=== PATIENT | male | born 1950 | race Caucasian/White ===

== ENCOUNTER → 2024-08-19 | Outpatient (CLI) | payer MEDICARE, SELFPAY ==
--- NOTE | 2024-08-19 | XR_ITS ---
Examination: PA lateral chest 2 views TECHNIQUE: Upright PA lateral chest 2 views Exam date and time: August 19, 2024 1237 hours INDICATIONS: Congestion shortness of breath beginning 2 days ago. FINDINGS: Minor subsegmental atelectasis at both lung bases No lobar pneumonia Normal heart size IMPRESSION: No lobar pneumonia identified
[2024-08-19 13:24] LABS: Basophils # (Auto) 0.1 Thou/mm3 (0.0-0.2); Basophils % (Auto) 1 % (0-2.5); Eosinophils # (Auto) 0.6 Thou/mm3 (0.0-0.5); Eosinophils % (Auto) 7 % (0-10); Hemoglobin 15.8 g/dL (13.5-16.0); Immature Granulocytes % (Auto) 0 % (0-0); Immature Granulocytes Auto 0.02 Thou/mm3 (0.00-0.00); Lymphocytes # (Auto) 3.9 Thou/mm3 (1.0-4.8); Lymphocytes % (Auto) 43 % (10-50); Mean Corpuscular HGB Conc 34.3 g/dl (31.0-37.0); Mean Corpuscular Volume 90 fL (80-100); Monocytes # (Auto) 0.8 Thou/mm3 (0.0-0.8); Monocytes % (Auto) 9 % (0-12); Neutrophils # (Auto) 3.8 Thou/mm3 (1.8-7.7); Neutrophils % (Auto) 41 % (37-80); Nucleated Red Blood Cell % 0 /100 WBC (0); Platelet Count 244 Thou/mm3 (140-440); Red Blood Count 5.09 Miln/mm3 (4.50-5.90); White Blood Count 9.2 Thou/mm3 (3.8-10.6)
[2024-08-19 13:39] LABS: Glucose Estimated Average 166 mg/dL (80-131); Hemoglobin A1C 7.4 % Hgb (4.8-6.0)
[2024-08-19 13:45] LABS: Alanine Aminotransferase 18 U/L (10-49); Albumin, Serum 4.5 gm/dL (3.4-4.8); Albumin/Globulin Ratio 2.1 (1.2-2.2); Alkaline Phosphatase 91 U/L (46-116); Anion Gap 9 (7-16); Aspartate Amino Transferase 12 U/L (0-34); BUN/Creatinine Ratio 18 Ratio (12-20); Bilirubin,Total 0.6 mg/dL (0.3-1.2); Blood Urea Nitrogen 16 mg/dL (9-23); Calcium 9.4 mg/dL (8.3-10.6); Calcium (Corrected) 9.4 mg/dL (8.5-10.1); Carbon Dioxide 26.9 mMol/L (20.0-31.0); Cardiac Risk Estimate 4.5 RATIO (4.0-6.7); Chloride 103 mMol/L (98-107); Cholesterol 195 mg/dL (132-200); Creatinine (Component) 0.9 mg/dL (0.6-1.3); Free T4 (Free Thyroxine) 1.07 ng/dL (0.89-1.76); Globulin 2.1 gm/dL (2.3-3.5); Glucose 128 mg/dL (74-106); HDL Cholesterol 43 mg/dL (40-60); Osmolality,Calculated 280 (275-295); Potassium 4.1 mMol/L (3.4-5.1); Sodium 139 mMol/L (136-145); Total Protein 6.6 gm/dL (5.7-8.2); Triglycerides 403 mg/dL (30-150); eGFR > 60 See Note
[2024-08-19 14:23] LABS: Hepatitis C Antibody Non Reactive (Non React)
== END | disposition home or self-care (01) ==
LOC: CDIM 12:44 → COPL 12:52
PROVIDERS: PCP Nurse Practitioner Family; Referring Provider Nurse Practitioner Family; Visit Provider Radiology Diagnostic Radiology
DX: J44.9 Chronic obstructive pulmonary disease, unspecified (principal); E11.9 Type 2 diabetes mellitus without complications; E78.5 Hyperlipidemia, unspecified; Z13.29 Encounter for screening for other suspected endocrine disorder; Z11.59 Encounter for screening for other viral diseases
CPT/HCPCS: 36415; 71046; 80053; 80061; 83036; 84439; 84443; 85025; 86803

== ENCOUNTER → 2024-08-22 | Outpatient (CLI) | payer MEDICARE, SELFPAY ==
[2024-08-22 13:32] LABS: B-Type Natriuretic Peptide 28 pg/mL (0-100)
[2024-08-22 13:44] LABS: Creatinine MALB Rnd Ur 72 mg/dL (30-125); Microalbumin, Random Urine < 3 mg/L (0-300)
[2024-08-22 13:44] LABS: C-Reactive Protein < 0.4 mg/dL (0.0-0.9); Cardiac Risk Estimate 4.8 RATIO (4.0-6.7); Cholesterol 222 mg/dL (132-200); HDL Cholesterol 46 mg/dL (40-60); LDL Cholesterol,Calculated 105 mg/dL (0-130); Triglycerides 353 mg/dL (30-150)
[2024-08-22 13:45] LABS: Sed Rate (ESR) 10 mm/hr (0-20)
[2024-08-22 13:49] LABS: Folate > 24.00 ng/mL (>5.38); Vitamin B12 1116 pg/mL (211-911); Vitamin D 25 Hydroxy Total 42.4 ng/mL (7.3-40.2)
[2024-08-26 07:04] LABS: Fecal Globin Result NOT DETECTED (NOT DETECTED)
[2024-09-12 09:08] LABS: Direct LDL* 114 mg/dL (<100)
== END | disposition home or self-care (01) ==
PROVIDERS: PCP Family Medicine; Referring Provider Nurse Practitioner Family; Visit Provider Nurse Practitioner Family
DX: E11.65 Type 2 diabetes mellitus with hyperglycemia (principal); E78.5 Hyperlipidemia, unspecified; R53.83 Other fatigue; R06.00 Dyspnea, unspecified; M10.9 Gout, unspecified; Z12.11 Encounter for screening for malignant neoplasm of colon
CPT/HCPCS: 36415; 80061; 82043; 82274; 82306; 82570; 82607; 82746; 83721; 83880; 84550; 85652; 86140; G0328

== ENCOUNTER → 2025-02-27 | Outpatient (CLI) | payer MEDICARE, SELFPAY ==
[2025-02-27 12:48] LABS: Basophils % (Auto) 1 % (0-2.5); Eosinophils # (Auto) 0.4 Thou/mm3 (0.0-0.5); Eosinophils % (Auto) 4 % (0-10); Hematocrit 46.6 % (41.0-53.0); Hemoglobin 15.5 g/dL (13.5-16.0); Immature Granulocytes % (Auto) 0 % (0-0); Immature Granulocytes Auto 0.02 Thou/mm3 (0.00-0.00); Lymphocytes # (Auto) 3.4 Thou/mm3 (1.0-4.8); Lymphocytes % (Auto) 42 % (10-50); Mean Corpuscular HGB Conc 33.3 g/dl (31.0-37.0); Mean Corpuscular Hemoglobin 30.1 pg (25.0-35.0); Mean Corpuscular Volume 91 fL (80-100); Monocytes # (Auto) 0.8 Thou/mm3 (0.0-0.8); Monocytes % (Auto) 9 % (0-12); Neutrophils # (Auto) 3.5 Thou/mm3 (1.8-7.7); Neutrophils % (Auto) 43 % (37-80); Nucleated Red Blood Cell % 0 /100 WBC (0); Platelet Count 270 Thou/mm3 (140-440); RDW Standard Deviation 44.3 fL (35.1-43.9); Red Blood Count 5.15 Miln/mm3 (4.50-5.90); White Blood Count 8.2 Thou/mm3 (3.8-10.6)
[2025-02-27 12:55] LABS: Collection Type, Urine Clean Catch
[2025-02-27 13:04] LABS: Glucose Estimated Average 163 mg/dL (80-131); Hemoglobin A1C 7.3 % Hgb (4.8-6.0)
[2025-02-27 13:21] LABS: Alanine Aminotransferase 15 U/L (10-49); Albumin, Serum 4.2 gm/dL (3.4-4.8); Alkaline Phosphatase 71 U/L (46-116); Anion Gap 6 (7-16); Aspartate Amino Transferase 14 U/L (0-34); BUN/Creatinine Ratio 13 Ratio (12-20); Bilirubin,Total 0.5 mg/dL (0.3-1.2); Blood Urea Nitrogen 13 mg/dL (9-23); C-Reactive Protein < 0.5 mg/dL (0.0-0.9); Carbon Dioxide 27.3 mMol/L (20.0-31.0); Cardiac Risk Estimate 3.8 RATIO (4.0-6.7); Chloride 107 mMol/L (98-107); Cholesterol 153 mg/dL (132-200); Globulin 2.1 gm/dL (2.3-3.5); Glucose 123 mg/dL (74-106); HDL Cholesterol 40 mg/dL (40-60); LDL Cholesterol,Calculated 67 mg/dL (0-130); Magnesium 1.9 mg/dL (1.6-2.6); Osmolality,Calculated 280 (275-295); Potassium 4.3 mMol/L (3.4-5.1); Sodium 140 mMol/L (136-145); Total Protein 6.3 gm/dL (5.7-8.2); Triglycerides 230 mg/dL (30-150); Uric Acid 6.9 mg/dL (3.7-9.2); eGFR > 60 See Note
[2025-02-27 13:37] LABS: Bilirubin,Urine Negative (Negative); Blood,Urine Negative (Negative); Clarity,Urine Clear (Clear/Hazy); Color,Urine Yellow (Lt Yel-Yel); Culture Indicated,Urine Not Indicated; Glucose, Urine Negative (Negative); Ketones,Urine Negative (Negative); Leukocyte Esterase,Urine Negative (Negative); Nitrite,Urine Negative (Negative); Protein,Urine Negative (Neg - Trace); RBC,Urine 1 /hpf (0-3); Specific Gravity,Urine 1.014 (1.001-1.035); Squamous Epithelial Cell,Urine < 1 /hpf (0-5); Urobilinogen,Urine Negative mg/dL (0.0-1.0); WBC,Urine 2 /hpf (0-5)
== END | disposition home or self-care (01) ==
PROVIDERS: PCP Nurse Practitioner Family; Referring Provider Nurse Practitioner Family; Visit Provider Nurse Practitioner Family
DX: E78.5 Hyperlipidemia, unspecified (principal); E11.65 Type 2 diabetes mellitus with hyperglycemia; I10 Essential (primary) hypertension; M10.9 Gout, unspecified
CPT/HCPCS: 36415; 80053; 80061; 81001; 83036; 83735; 84550; 85025; 86140

== ENCOUNTER → 2025-04-17 | Outpatient (CLI) | payer MEDICARE, SELFPAY ==
--- NOTE | 2025-04-17 10:41 | XR_ITS ---
Examination: Bilateral hips, AP pelvis, 5 views Technique: AP, lateral views both hips, AP pelvis, 5 views Exam date and time: April 17, 2025 1056 hours INDICATIONS: Bilateral hip pain beginning 4 weeks ago FINDINGS: Moderate narrowing hip joints No hip or pelvic fracture bilaterally IMPRESSION: Moderate bilateral hip osteoarthritis
== END | disposition home or self-care (01) ==
PROVIDERS: PCP Nurse Practitioner Family; Referring Provider Nurse Practitioner Family; Visit Provider Nurse Practitioner Family
DX: M16.0 Bilateral primary osteoarthritis of hip (principal)
CPT/HCPCS: 73521

== ENCOUNTER → 2025-05-20 | Outpatient (CLI) | payer MEDICARE, SELFPAY ==
[2025-05-20 14:07] LABS: Collection Type, Urine Clean Catch
[2025-05-20 17:27] LABS: Bacteria,Urine Rare; Bilirubin,Urine Negative (Negative); Blood,Urine Negative (Negative); Color,Urine Yellow (Lt Yel-Yel); Glucose, Urine Negative (Negative); Ketones,Urine Negative (Negative); Leukocyte Esterase,Urine Positive (Negative); Nitrite,Urine Negative (Negative); PH,Urine 6.5 (5.0-7.0); Protein,Urine Trace (Neg - Trace); RBC,Urine 14 /hpf (0-3); Specific Gravity,Urine 1.014 (1.001-1.035); Squamous Epithelial Cell,Urine 2 /hpf (0-5); Urobilinogen,Urine Negative mg/dL (0.0-1.0); WBC,Urine 136 /hpf (0-5)
[2025-05-20 17:45] LABS: Clarity,Urine Cloudy (Clear/Hazy); Culture Indicated,Urine Yes
== END | disposition home or self-care (01) ==
PROVIDERS: Referring Provider Nurse Practitioner Family; Visit Provider Nurse Practitioner Family
DX: N39.0 Urinary tract infection, site not specified (principal)
CPT/HCPCS: 81001; 87077; 87086; 87186

== ENCOUNTER → 2025-05-22 | Outpatient (CLI) | payer MEDICARE, SELFPAY ==
[2025-05-23 10:04] LABS: Campylobacter PCR Negative (Negative); Salmonella Species PCR Negative (Negative); Shiga Toxin PCR Negative (Negative); Shigella Species PCR Negative (Negative)
== END | disposition home or self-care (01) ==
LOC: SLDO 13:02
PROVIDERS: PCP Nurse Practitioner Family; Referring Provider Nurse Practitioner Family; Visit Provider Nurse Practitioner Family
DX: A09 Infectious gastroenteritis and colitis, unspecified (principal)
CPT/HCPCS: 87015; 87045; 87046; 87505; 87899

== ENCOUNTER → 2025-05-28 | Outpatient (CLI) | payer MEDICARE, SELFPAY ==
--- NOTE | 2025-05-28 15:30 | XR_ITS ---
Examination: CT chest, without intravenous contrast. Sagittal and coronal 2-D reconstructions. Exam date and time: May 28, 2025 1436 hours, comparison 05/29/2024 INDICATIONS: Smoking history 20 years, 12 mm left tracheobronchial lymph node on CT chest 05/29/2024 CTDI:vol (mGy) 15.2 DLP: (mGycm) 578 Technique: Multiple 3.0 mm axial sections of the chest to been obtained. Bone and lung density settings are obtained. Sagittal and coronal 2-D reconstructions have been obtained. Low dose protocols were performed. One or more of the following dose reduction techniques were used; automated exposure control, adjustment of the mA and/or KV according to patient size, use of iterative reconstruction technique. Findings: Stable 12 mm left tracheobronchial lymph node No thoracic aortic aneurysm dilatation. Pulmonary artery segments do not appear enlarged COPD with focal areas of airspace destruction No pneumonia or pulmonary edema No visualized liver or splenic lesion No gallstones IMPRESSION: Stable 12 mm left tracheobronchial lymph node No interval pulmonary nodules COPD
== END | disposition home or self-care (01) ==
PROVIDERS: Referring Provider Internal Medicine; Visit Provider Internal Medicine
DX: J44.9 Chronic obstructive pulmonary disease, unspecified (principal)
CPT/HCPCS: 71250

== ENCOUNTER → 2025-06-11 | Outpatient (CLI) | payer MEDICARE, SELFPAY ==
[2025-06-11 09:50] LABS: Glucose Estimated Average 146 mg/dL (80-131); Hemoglobin A1C 6.7 % Hgb (4.8-6.0)
[2025-06-11 09:52] LABS: Cardiac Risk Estimate 3.0 RATIO (4.0-6.7); Cholesterol 132 mg/dL (132-200); HDL Cholesterol 44 mg/dL (40-60); LDL Cholesterol,Calculated 56 mg/dL (0-130); Magnesium 1.9 mg/dL (1.6-2.6); Triglycerides 162 mg/dL (30-150); Uric Acid 5.8 mg/dL (3.7-9.2)
== END | disposition home or self-care (01) ==
LOC: COPL 08:47
PROVIDERS: PCP Family Medicine; Referring Provider Nurse Practitioner Family; Visit Provider Nurse Practitioner Family
DX: M10.9 Gout, unspecified (principal); E78.5 Hyperlipidemia, unspecified; E11.65 Type 2 diabetes mellitus with hyperglycemia; E11.3293 Type 2 diabetes mellitus with mild nonproliferative diabetic retinopathy without macular edema, bilateral; E83.42 Hypomagnesemia
CPT/HCPCS: 36415; 80061; 83036; 83735; 84550

== ENCOUNTER 2025-07-24 09:23 | Outpatient (AMB) | payer MEDICARE, SELFPAY ==
--- NOTE | 2025-07-24 09:28 | ORTHONT_ITS ---
Vital signs 07/24/25 09:34 Height 1.78 m Height Method Measured Weight 104.326 kg Weight Measurement Method Standing Scale BMI 33.0 BP 126/79 Blood Pressure Source Automatic Cuff Blood Pressure Location Left Upper Arm Position Sitting Respiration 18 Pulse 74 Pulse Source Monitor Temp 98.0 F Temp Source Temporal Artery Scan Pulse Oximetry (%) 92 L Oxygen Delivery Method Room Air Med/Allergies Allergies & Medications Allergies No Known Allergies Allergy (Verified 07/24/25 09:36) Medication Reconciliation albuterol sulfate 90 mcg/actuation aerosol inhaler (Ventolin HFA) 1 inh inhalat ion QID 07/24/25 [History Confirmed 07/24/25] budesonide 160 mcg-glycopyr 9 mcg-formot 4.8 mcg/actuation HFA inhaler (Breztri Aerosphere) 2 inh inhalation BID 07/24/25 [History Confirmed 07/24/25] carvedilol 3.125 mg tablet 3.125 mg PO BID 07/24/25 [History Confirmed 07/24/25] faricimab-svoa 6 mg/0.05 mL intravitreal solution (Vabysmo) 6 mg intravitreal Q16W 07/24/25 [History Confirmed 07/24/25] fenofibrate 54 mg tablet 54 mg PO QDAY 07/24/25 [History Confirmed 07/24/25] metformin 1,000 mg tablet,extended release 24hr (osmotic) (Fortamet) 1,000 mg PO QDAY 07/24/25 [History Confirmed 07/24/25] potassium chloride 8 mEq tablet,extended release (Klor-Con) 8 meq PO QDAY 07/24/25 [History Confirmed 07/24/25] rivaroxaban 20 mg tablet (Xarelto) 20 mg PO QDAY 07/24/25 [History Confirmed 07/24/25] rosuvastatin 10 mg tablet 10 mg PO QDAY 07/24/25 [History Confirmed 07/24/25] tadalafil 20 mg tablet (Cialis) 20 mg PO QDAY PRN 07/24/25 [History Confirmed 07/24/25] tiotropium bromide 2.5 mcg/actuation mist for inhalation (Spiriva Respimat) 2 inh inhalation QAM 07/24/25 [History Confirmed 07/24/25] Exam Exam Patient is in no acute distress and is cooperative with the examination today. Breathing is nonlabored. In no respiratory distress. Patient has no paraspinal tenderness. Spinal deformity cannot be appreciated. The gait of the patient is nonantalgic Bilateral extremities were evaluated and demonstrates sensation intact to light touch. Palpable pedal pulses are present. No significant edema is present. Bilateral knees were examined and the patient has full strength and range of motion.. The right hip was examined. Patient was able to flex to 90 degrees, adduct to 30 degrees, abduct to 40 degrees, internally rotate to 20 degrees, and externally rotate to 20 degrees. Patient has a negative logroll. Stinchfield is negative. The patient is tender to touch over the greater trochanter The left hip was examined. Patient was able to flex to 90 degrees, adduct to 30 degrees, abduct to 40 degrees, internally rotate to 20 degrees, and externally rotate to 20 degrees. Patient has a negative logroll. The stinchfield is nega tive. The patient is tender to touch over the greater trochanter X-rays demonstrate preserved hip joint spaces Assessment and Plan Problem List (1) Trochanteric bursitis of both hips: Status: Acute Plan: Patient is a 74-year-old male with bilateral hip trochanteric bursitis. ASSESSMENT AND PLAN 1. Bilateral hip pain: The bilateral hip pain is likely due to trochanteric bursitis, exacerbated by a tight IT band. Mild arthritis was also noted. The pain is on the sides of the hips and is somewhat bothersome but not severe. The patient has not tried anti- inflammatory medications due to his current use of Xarelto, which contraindicate s such medications. He has previously completed 10 physical therapy sessions, which did not focus on the necessary stretching exercises. A hip conditioning program focused on stretches was provided. The patient is advised to perform stretching exercises for the IT band. If there is no improvement with the stretching exercises, an injection will be considered. The patient should avoid anti-inflammatory medications due to the risk of bleeding associated with Xarelto. The goal is to alleviate pain and improve mobility without the need for surgery. Advanced Care Planning Discussion Advance care planning discussed with:: patient Office Procedures GNS Level of Care Nursing/Assessment Patient Status: Initial/New Patient Nursing Assessment/Reassesment: Medication Reconciliation, Update PMH in EMR and Vital Signs Coordination of Care: Complex Care and Chronic Disease 1-5, Education Complex Pt/Fam, Consent,records obtained, informed consent, Lab and Imaging orders, Results/Orders obtained and Staff clarify orders New Patient Charge New Patient Point Assignment: 1109 New Patient Point Charge: PHYSICIAN SCIENTIST Level 3 ([id number]) MA Intake Visit Data Collection New Patient or Established: New Patient (never been to [facility]) Reason for Visit:: BILATERAL HIP PAIN Seen by Clinical Staff ONLY (RN/MA): No Pit Boss Required: No PCP or OBGYN visit in last 3 months: Yes Hx Now: No Do You Feel Safe at Home: Yes Authorities Contacted: N/A Questionairres Past Medical History Past Medical History Have you ever been diagnosed with any of the following: Subjective Visit Visit for: new patient and hip Immunization / Flu Flu Vaccine in the Last 12 Months: Yes Flu Vaccine Exclusion Criteria: Already Received History of Present Illness Chief complaint: BILATERAL HIP PAIN Date of injury / onset of symptoms: 6 MONTHS AGO HISTORY OF PRESENT ILLNESS I, Dave Pickard, have obtained verbal consent from the patient, to be recorded during this encounter which may include, but not limited to, medical history, examination, treatment plans, and relevant health information.? Patient was informed that recording will be read and reviewed by myself before inclusion in the medical chart. The patient is a 74-year-old male who presents today with bilateral hip pain that started about 6 months ago. He last had imaging completed here at [facility] but cannot remember if it was laying down or standing up. He has not had prior surgeries of the hip or knee and has not tried injections. He has had about 10 physical therapy sessions, which have been helpful, but has not tried any anti-inflammatory medications. He reports experiencing discomfort on the lateral aspects of both hips, which does not interfere with his ability to sleep on his left side. The pain is described as mild and is not exacerbated by palpation. He has been engaging in increased physical activity, specifically walking his dog. Despite undergoing 10 weeks of physical therapy, he has not found significant relief. His therapy regimen included balance exercises and stair climbing. He has not yet attempted any pharmacological interventions for his condition. He is currently on a high dose of Xarelto. Personal History Occupation: RETIRED Red flag PMH: none BMI Counceling provided: Yes Pain Pain level (0-10): 0 Pain location: outside (lateral) Pain timing: increases with activity Associated signs & symptoms: numbness Ambulatory data Ambulatory device: none Treatments Number of previous injections: 0 Improvement with previous injections: No Number of Physical Therapy sessions: 10 Improvement with PT: Yes Improvement with NSAIDS: no Review of Systems Review of Systems: All systems negative unless otherwise noted in HPI.
[2025-07-24 09:34] VITALS: BP 126/79; PULSE 74; RESP 18; TEMP 36.7; O2SAT 92; BMI 33.0
== END 2025-07-24 09:47 | disposition home or self-care (01) ==
LOC: HODSRG 09:23
PROVIDERS: Supervising Provider Orthopaedic Surgery Adult Reconstructive Orthopaedic Surgery; Visit Provider Orthopaedic Surgery Adult Reconstructive Orthopaedic Surgery
DX: M70.62 Trochanteric bursitis, left hip (principal); M70.61 Trochanteric bursitis, right hip; M25.552 Pain in left hip; M25.551 Pain in right hip
CPT/HCPCS: 99203; G0463